=== PATIENT | female | born 1985 | race Caucasian/White ===

== ENCOUNTER 2016-07-06 10:34 | Emergency (ER) | payer OTHER ==
[2016-07-06 11:53] LABS: HEMOGLOBIN 10.9 gm/dl (12.3-15.3); WHITE BLOOD COUNT 7.1 K/UL (4.5-11.0)
[2016-07-06 12:16] LABS: BUN/CREATININE RATIO 20 (0-10)
== END 2016-07-06 11:00 | disposition home or self-care (01) ==
LOC: ER1 10:34
PROVIDERS: Physician Assistant
DX: R00.2 Palpitations (principal); M54.5 Low back pain; J44.9 Chronic obstructive pulmonary disease, unspecified; Z88.2 Allergy status to sulfonamides; Z88.8 Allergy status to other drugs, medicaments and biological substances
CPT/HCPCS: 36415; 80053; 82550; 82553; 83690; 83874; 84484; 85025; 93005; 99285